=== PATIENT | male | born 1935 | race Caucasian/White ===

== ENCOUNTER 2019-08-19 11:03 | Outpatient (CLI) | payer MEDICARE, SELFPAY ==
[2019-08-19 16:36] LABS: INR 1.8; Prothrombin Time 20.6 Seconds (11.1-14.7)
== END 2019-08-19 11:04 | disposition home or self-care (01) ==
PROVIDERS: PCP Internal Medicine; Visit Provider Internal Medicine Cardiovascular Disease
DX: I48.0 Paroxysmal atrial fibrillation (principal)
CPT/HCPCS: 36415; 85610

== ENCOUNTER 2019-11-02 13:01 | Outpatient (CLI) | payer MEDICARE, SELFPAY ==
[2019-11-02 16:12] LABS: Potassium 4.9 mmol/L (3.4-5.0)
[2019-11-02 16:14] LABS: Blood Urea Nitrogen 44 mg/dL (9-20); Calcium 9.1 mg/dL (8.4-10.2); Carbon Dioxide 30 mmol/L (22-30); Chloride 103 mmol/L (98-107); Estimated Glomerular Filt Rate 39; Glucose 136 mg/dL (75-110); Sodium 138 mmol/L (137-145)
== END 2019-11-02 13:02 | disposition home or self-care (01) ==
LOC: ANHLAB 13:05
PROVIDERS: PCP Internal Medicine; Visit Provider Internal Medicine
DX: I50.22 Chronic systolic (congestive) heart failure (principal)
CPT/HCPCS: 36415; 80048

== ENCOUNTER 2020-01-03 12:32 | Outpatient (CLI) | payer MEDICARE, SELFPAY ==
--- NOTE | 2020-01-03 13:16 | ECHO_ITS ---
Patient Info Name: Jermaine Zhu Age: 84 years : 1935 Gender: Male Ht: 69 in Wt: 137 lbs BSA: 1.73 m2 HR: 49 bpm BP: 127 / 67 mmHg Heart Rhythm: Atrial Fibrillation Technical Quality: Good Exam Date: 01/03/2020 1:30 PM Exam Location: [facility] Patient Status: Outpatient Admit Date: 01/03/2020 Staff Ordering Physician: Asa De Souza DO Inventory Specialist: Nidia Brennan RDCS Attending Provider: Asa De Souza DO Referring Physician: Ap SUNG; Exam Type: CA echo doppler color flow Study Info Indications I50.22 - Chronic systolic (congestive) heart failure Complete two-dimensional, color flow and Doppler transthoracic echocardiogram is performed. Summary 1. Left ventricular chamber dimension is severely enlarged. 2. Anterior/anteroseptum are akinetic. Apical septum is akinetic. 3. Left ventricular systolic function is severely reduced, estimated at 20-25%. 4. The left ventricular diastolic function is normal. 5. E/e' 9 is minimally elevated. 6. Left atrial chamber dimension is severely enlarged. 7. Right atrial chamber dimension is mildly enlarged. 8. There is mild aortic valve sclerosis. 9. There is trace aortic valve regurgitation. 10. There is mild mitral valve regurgitation. 11. There is mild tricuspid valve regurgitation. 12. No pulmonary hypertension, estimated pulmonary arterial systolic pressure is 24 mmHg. 13. There is trace pulmonic regurgitation. Left Ventricle E/e' 9 is minimally elevated. Anterior/anteroseptum are akinetic. Apical septum is akinetic. Left ventricular chamber dimension is severely enlarged. Left ventricular systolic function is severely reduced, estimated at 20-25%. The left ventricular diastolic function is normal. Right Ventricle Right ventricular chamber dimension is normal. Right ventricular systolic function is normal. Left Atria Left atrial chamber dimension is severely enlarged. Right Atria Right atrial chamber dimension is mildly enlarged. Aortic Valve The aortic valve is trileaflet. There is mild aortic valve sclerosis. There is no aortic valve stenosis. There is trace aortic valve regurgitation. Pulmonic Valve There is trace pulmonic regurgitation. Mitral Valve There is no mitral valve stenosis. There is mild mitral valve regurgitation. Tricuspid Valve There is mild tricuspid valve regurgitation. No pulmonary hypertension, estimated pulmonary arterial systolic pressure is 24 mmHg. Pericardium/Pleural There is no pericardial effusion. Inferior Vena Cava Normal inferior vena cava with >50% collapse upon inspiration consistent with normal right atrial pressure, 5 mmHg. Aorta The aortic root size at the sinus of Valsalva is normal. Left Ventricular Outflow Tract Name Value Normal LVOT 2D LVOT Diameter 2.1 cm LVOT Doppler LVOT Peak Gradient 1 mmHg LVOT Mean Gradient 0 mmHg LVOT VTI 22 cm LVOT VTI/AV VTI Ratio 0.9 LVOT Stroke Volume 76 ml LVOT CO
== END 2020-01-03 12:33 | disposition home or self-care (01) ==
PROVIDERS: PCP Internal Medicine; Visit Provider Internal Medicine Cardiovascular Disease
DX: I50.22 Chronic systolic (congestive) heart failure (principal); I51.7 Cardiomegaly; I70.0 Atherosclerosis of aorta
CPT/HCPCS: 36415; 85025; 85055; 93306; 96372; J0885

== ENCOUNTER 2020-02-22 15:50 | Outpatient (CLI) | payer MEDICARE, SELFPAY ==
[2020-02-22 17:42] LABS: Hematocrit 30.6 % (42.0-52.0); Hemoglobin 10.1 g/dL (14.0-18.0); Mean Corpuscular Hemoglobin 35.3 pg (26-34); Platelet Count Result 70 k/mm3 (150-375); Red Blood Count 2.86 M/mm3 (4.6-6.20); Red Cell Distribution Width 12.7 % (11.5-14.5); White Blood Count 4.7 K/mm3 (4.5-10.0)
[2020-02-22 17:43] LABS: Anion Gap 5 mmol/L (8-16); Blood Urea Nitrogen 43 mg/dL (9-20); Calcium 9.3 mg/dL (8.4-10.2); Carbon Dioxide 29 mmol/L (22-30); Chloride 102 mmol/L (98-107); Estimated Glomerular Filt Rate 45; Glucose 122 mg/dL (75-110); Magnesium 2.3 mg/dL (1.6-2.3); NT Pro B Type Natriuretic Pept 13300 PG/ML (5-100); Potassium 4.6 mmol/L (3.4-5.0); Sodium 136 mmol/L (137-145)
== END 2020-02-22 15:51 | disposition home or self-care (01) ==
PROVIDERS: PCP Internal Medicine; Visit Provider Internal Medicine Cardiovascular Disease
DX: I50.9 Heart failure, unspecified (principal); N18.3 Chronic kidney disease, stage 3 (moderate); E11.9 Type 2 diabetes mellitus without complications; J96.11 Chronic respiratory failure with hypoxia
CPT/HCPCS: 36415; 80048; 83735; 83880; 85027

== ENCOUNTER 2020-02-29 21:30 | Emergency (ER) | payer MEDICARE, SELFPAY ==
--- NOTE | ~2020-02-29 | CT_ITS ---
EXAMINATION: CT abdomen pelvis wo con DATE: 02/29/2020 23:26 INDICATION: Abdominal pain, nausea and vomiting TECHNIQUE: Computed tomography (CT) of the abdomen and pelvis was performed without intravenous contr ast. The dose-length product (DLP) was 205.88 mGy-cm. Automated exposure control and iterative recons truction technique were employed. COMPARISON: 09/17/2018 FINDINGS: The stomach is distended. There is a large hiatal hernia with organoaxial volvulus. A diste nded portion of the body of the stomach appears to be below the diaphragm. There is passive atelectas is in the lower lobes caused by the hernia. Moderate emphysema is noted. The heart size is normal. Pu nctate calcifications in otherwise normal appearing liver and spleen likely represent healed granulom atous disease. There is a 2.7 cm cystic lesion in the head of the pancreas. The gallbladder and adren al glands are normal. Nonobstructing stones of the kidneys measure up to 4 mm on the right. There is a 2.9 cm cyst of the left kidney. No pathologically enlarged abdominal or pelvic lymph nodes are iden tified. A bifurcated aortobiiliac endoluminal stent is noted. There is no free intraperitoneal gas. A short segment of transverse colon is seen within the large hiatal hernia. There is a large volume of stool in the colon proximal to the affected segment. There is severe lumbar spondylosis. IMPRESSION: 1. Large hiatal hernia with organoaxial volvulus, part of the body of the stomach below the diaphragm , and gastric distention, possibly due to bowel obstruction. 2. Short segment of transverse colon within the hiatal hernia with a large volume of stool in the col on proximal to the affected segment. 3. 2.7 cm cystic lesion in the head of the pancreas. The differential diagnosis includes pseudocyst, intraductal papillary mucinous neoplasm (IPMN), mucinous cystic neoplasm (MCN), and the less common s erous cystadenoma and neuroendocrine tumor. Correlate for history of pancreatitis. Recommend follow-u p CT or MRI without and with contrast in two years. Reviewed, dictated and finalized at location A. IMPRESSION: 1. Large hiatal hernia with organoaxial volvulus, part of the body of the stoma ch below the diaphragm, and gastric distention, possibly due to bowel obstructi on. 2. Short segment of transverse colon within the hiatal hernia with a large volu me of stool in the colon proximal to the affected segment. 3. 2.7 cm cystic lesion in the head of the pancreas. The differential diagnosis includes pseudocyst, intraductal papillary mucinous neoplasm (IPMN), mucinous cystic neoplasm (MCN), and the less common serous cystadenoma and neuroendocrin e tumor. Correlate for history of pancreatitis. Recommend follow-up CT or MRI w ithout and with contrast in two years.
--- NOTE | ~2020-02-29 | XR_ITS ---
EXAMINATION: XR abdomen NG/feed tube insert INDICATION: Nasogastric tube placement TECHNIQUE: Portable AP KUB-[id number] at 0216 hours COMPARISON: CT from yesterday FINDINGS: The nasogastric tube is within the stomach which is entirely intrathoracic based on the [facility] CT examination. The visualized lung bases are clear. A bifurcated aortobiiliac stent is noted . IMPRESSION: 1. Nasogastric tube within the stomach which is entirely intrathoracic. Reviewed, dictated and finalized at location A.
[2020-02-29 21:46] VITALS: BP 128/73; PULSE 77; RESP 20; TEMP 36; O2SAT 95
--- NOTE | 2020-02-29 21:58 | ED.NAVMDI ---
HPI - Nausea/Vomiting/Diarrhea General Chief complaint: Nausea/Vomiting/Diarrhea Stated complaint: nausea and vomiting Time Seen by Provider: 02/29/20 21:52 Source: patient Mode of arrival: ambulatory Limitations: no limitations History of Present Illness HPI Narrative: This patient is an 84 year old male with multiple medical problems who presents for evaluation of nausea, vomiting and abdominal pain. He states he ate fries and cheeseburger this after noon and he has been having nausea and vomiting since. He also reports upper abdominal pain cramping. He has multiple episode of vomiting but denies diarrhea or fever. He state he has history nausea and vomiting with eating occasional. His primary care physician has prescribed Remeron and pepto bismal. He states his symptoms usually improve after pepto bismol. Related Data Home Medications Medication Instructions Recorded Confirmed aspirin 81 mg PO DAILY 04/14/19 02/27/20 cholecalciferol (vitamin D3) 1,000 unit PO DAILY 04/14/19 02/27/20 hydrocortisone [Procto-Med HC] 1 applic [place] BID PRN 04/14/19 02/27/20 latanoprost 1 drp OPHTHALMIC (EYE) QPM 04/14/19 02/27/20 nitroglycerin 0.4 mg SUBLINGUAL Q5MIN PRN MDD 3 04/14/19 02/27/20 Procrit 20,000 unit SUBCUT MONTHLY 05/22/19 02/27/20 bisacodyl [Dulcolax (bisacodyl)] 5 mg PO HS PRN 05/22/19 02/27/20 calcium carbonate-vitamin D3 1 tablet PO BID 05/22/19 02/27/20 cyanocobalamin (vitamin B-12) 1,000 mcg IM MONTHLY 05/22/19 02/27/20 ferrous sulfate [Iron (ferrous 325 mg PO DAILY 05/22/19 02/27/20 sulfate)] famotidine [Pepcid AC] 10 mg PO DAILY PRN 09/07/19 02/27/20 apixaban [Eliquis] 2.5 mg PO BID 11/02/19 02/27/20 albuterol sulfate 90 mcg/actuation 1 inh INHALATION DAILY PRN gm 12/15/19 02/27/20 aerosol inhaler Allergies Allergy/AdvReac Type Severity Reaction Status Date / Time No Known Allergies Allergy Verified 02/22/20 14:18 Review of Systems Review of Systems: All systems reviewed & are unremarkable except as noted in HPI and below Cardiovascular: Cardiovascular: Denies chest pain and Denies radiating jaw, neck or arm pain Respiratory: Respiratory: Denies cough, Denies dyspnea and Denies wheezing Gastrointestinal: Gastrointestinal: Reports abdominal pain, Denies diarrhea, Reports nausea and Reports vomiting Genitourinary: Genitourinary: Denies hematuria, Denies oliguria and Reports urinary frequency (chronic) Musculoskeletal: Musculoskeletal: Reports back pain [facility] Past Medical History Medical History (Updated 03/01/20 @ 06:55 by Nasrin Macedo MD) CHF (congestive heart failure) Chronic hypoxemic respiratory failure Chronic kidney disease, stage 4 (severe) COPD (chronic obstructive pulmonary disease) Glaucoma History of tobacco abuse 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 On home O2 3L Paroxysmal atrial fibrillation Thrombocytopenia Surgical History Surgical History Hx of CABG Stented coronary artery Social History Social History Smoking packs per day: 1 Smoking cigarettes per day: 20.0 Years smoked: 40 Smoking pack-years: 40.00 Smoking status: Former smoker Smoking end date: 06/29/01 Alcohol intake: never Substance use: never Gender identity (if verbalized by the patient): Male Spiritual care concerns: No Exam Const: General: alert Nutritional Appearance: thin Orientation/consciousness: patient oriented x3 HENMT: Head: normocephalic and atraumatic Face and sinus: face symmetric Throat: uvula midline Eyes: EOM: EOMs intact bilaterally Resp: Effort & Inspection: normal respiratory effort Auscultation: clear to auscultation bilaterally and diminished lung sounds Other: on nasal canula oxygen Cardio: Rate: regular rate Rhythm: regular rhythm Heart sounds: no murmurs GI: GI Palp: Yes Soft to palpation, Yes Tender
[2020-02-29 22:24] LABS: Basophils Percent Auto 0.1 % (0.2-1.2); Hematocrit 35.1 % (42.0-52.0); Hemoglobin 11.8 g/dL (14.0-18.0); Immature Granulocyte Absolute 0.03 K/mm3 (0.00-0.031); Immature Granulocyte Percent A 0.4 % (0-0.5); Lymphocytes Absolute Auto 0.54 K/mm3 (0.9-3.2); Lymphocytes Percent Auto 6.8 % (18.3-44.2); Mean Corpuscular HGB Conc 33.6 g/dl (32-36); Mean Corpuscular Hemoglobin 35.4 pg (26-34); Mean Corpuscular Volume 105.4 fl (80-100); Mean Platelet Volume 11.8 fl (7.4-10.4); Monocytes Absolute Auto 0.4 K/mm3 (0.1-0.6); Monocytes Percent Auto 4.8 % (2.6-8.5); Neutrophils Percent Auto 87.9 % (45.5-73.1); Platelet Count Result 81 k/mm3 (150-375); Red Blood Count 3.33 M/mm3 (4.6-6.20); Red Cell Distribution Width 13.1 % (11.5-14.5); White Blood Count 7.9 K/mm3 (4.5-10.0)
[2020-02-29] MEDS: ONDANSETRON INJ 4 MG/2 ML VIAL IV PUSH (22:30)
[2020-02-29 22:40] LABS: Alanine Aminotransferase 23 U/L (4-50); Albumin Level 4.5 g/dL (3.5-5.1); Alkaline Phosphatase 64 U/L (38-126); Anion Gap 7 mmol/L (8-16); Aspartate Amino Transferase 29 U/L (17-59); Bilirubin,Total 0.7 mg/dL (0.2-1.3); Blood Urea Nitrogen 39 mg/dL (9-20); Calcium 9.7 mg/dL (8.4-10.2); Carbon Dioxide 29 mmol/L (22-30); Chloride 105 mmol/L (98-107); Estimated CRCL calculation 25 ml/min; Estimated Glomerular Filt Rate 36; Glucose 159 mg/dL (75-110); Lipase 576 U/L (23-300); Potassium 4.1 mmol/L (3.4-5.0); Sodium 141 mmol/L (137-145)
[2020-02-29] MEDS: SODIUM CHLORIDE 0.9% IV 500 ML 999 ML IV CONT (22:50)
[2020-02-29 23:28] VITALS: BP 122/75; PULSE 79; RESP 22; O2SAT 96
[2020-03-01] VITALS (75 sets, daily range): BP systolic 100–140; BP diastolic 46–79; PULSE 38–102; RESP 11–29; TEMP 36.7; O2SAT 91–100
[2020-03-01 00:46] LABS: Add Urine Microscopic? YES; Appearance Urine Clear (Clear); Bilirubin Urine Negative (Negative); Blood Urine 2+ (Negative); Color Urine Yellow (Yellow); Glucose Urine UA Negative (Negative); Ketones Urine Negative (Negative); Leukocyte Esterase Ur Negative LEU/UL (Negative); Mucus Urine Rare /lpf; Nitrate Urine Negative (Negative); Protein Urine 1+ mg/dL (Negative); RBC Urine 51-75 /hpf (0-2); Squamous Epithelial Cell Urine Rare /hpf (Few); Urobilinogen Urine Negative mg/dL (<2.0)
--- NOTE | 2020-03-01 01:03 | PC.NURSE ---
pt cell phone [phone].
--- NOTE | 2020-03-01 02:10 | PC.NURSE ---
Bill from [place] [facility] called, awaiting bed assignment.
[2020-03-01] MEDS: SODIUM CHLORIDE 0.9% IV 1,000 ML 100 ML IV CONT (05:05)
--- NOTE | 2020-03-01 13:30 | PC.NURSE ---
no beds available at this time
[2020-03-01 18:55] LABS: Glucose Point of Care 99 (65-105)
== END 2020-03-01 19:10 | disposition short-term general hospital (02) ==
PROVIDERS: Emergency Provider General Practice; PCP Internal Medicine
DX: K31.89 Other diseases of stomach and duodenum (principal); K44.9 Diaphragmatic hernia without obstruction or gangrene; I50.9 Heart failure, unspecified; J96.11 Chronic respiratory failure with hypoxia; E11.22 Type 2 diabetes mellitus with diabetic chronic kidney disease; N18.4 Chronic kidney disease, stage 4 (severe); Z79.01 Long term (current) use of anticoagulants; J44.9 Chronic obstructive pulmonary disease, unspecified; H40.9 Unspecified glaucoma; Z99.81 Dependence on supplemental oxygen; I48.0 Paroxysmal atrial fibrillation; I25.10 Atherosclerotic heart disease of native coronary artery without angina pectoris; Z95.1 Presence of aortocoronary bypass graft; Z95.5 Presence of coronary angioplasty implant and graft; D69.6 Thrombocytopenia, unspecified; Z87.891 Personal history of nicotine dependence; Z79.82 Long term (current) use of aspirin
CPT/HCPCS: 36415; 74176; 80053; 81001; 83690; 85025; 96361; 96374; 99285; J2405; J7030; J7040

== ENCOUNTER 2020-03-12 13:54 | Outpatient (CLI) | payer MEDICARE, SELFPAY ==
[2020-03-12 14:41] LABS: Basophils Percent Auto 0.3 % (0.2-1.2); Eosinophils Absolute Auto 0.1 K/mm3 (0-0.3); Eosinophils Percent Auto 1.2 % (0-4.4); Hematocrit 34.3 % (42.0-52.0); Hemoglobin 11.3 g/dL (14.0-18.0); Immature Granulocyte Absolute 0.02 K/mm3 (0.00-0.031); Immature Granulocyte Percent A 0.3 % (0-0.5); Immature Platelet Fraction Pct 5.4 % (0.9-11.2); Lymphocytes Absolute Auto 0.87 K/mm3 (0.9-3.2); Lymphocytes Percent Auto 15.1 % (18.3-44.2); Mean Corpuscular HGB Conc 32.9 g/dl (32-36); Mean Corpuscular Volume 109.2 fl (80-100); Mean Platelet Volume 11.6 fl (7.4-10.4); Monocytes Absolute Auto 0.5 K/mm3 (0.1-0.6); Monocytes Percent Auto 8.5 % (2.6-8.5); Neutrophils Absolute Auto 4.3 K/mm3 (1.3-6.7); Neutrophils Percent Auto 74.6 % (45.5-73.1); Platelet Count Result 123 k/mm3 (150-375); Red Blood Count 3.14 M/mm3 (4.6-6.20); Red Cell Distribution Width 14.6 % (11.5-14.5); White Blood Count 5.8 K/mm3 (4.5-10.0)
[2020-03-12 14:57] LABS: Anion Gap 4 mmol/L (8-16); Blood Urea Nitrogen 30 mg/dL (9-20); Calcium 9.6 mg/dL (8.4-10.2); Carbon Dioxide 33 mmol/L (22-30); Chloride 99 mmol/L (98-107); Estimated Glomerular Filt Rate 48; Glucose 202 mg/dL (75-110); Sodium 136 mmol/L (137-145)
== END 2020-03-12 13:55 | disposition home or self-care (01) ==
PROVIDERS: PCP Internal Medicine
DX: K44.9 Diaphragmatic hernia without obstruction or gangrene (principal)
CPT/HCPCS: 36415; 80048; 85025; 85055